=== PATIENT | male | born 1950 | race Caucasian/White ===

== ENCOUNTER 2019-01-27 17:40 | Emergency (ER) | payer MEDICARE ==
[~2019-01-27] VITALS: Ht 188 cm; Wt 148.8 kg
--- NOTE | 2019-01-27 18:03 | EKG ---
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
[2019-01-27] MEDS ORDERED: LIDO:MAALOX 1:1 20 ML SINGLE DOSE. PO ONE (18:15)
[2019-01-27] MEDS ORDERED: ONDANSETRON PF 4 MG/2 ML VIAL. IVP ONE ×2 (18:15→21:15)
[2019-01-27] MEDS ORDERED: MORPHINE SULFATE 4 MG/ML DISP.SYRIN. IV ONE ×2 (18:15→21:15)
[2019-01-27] MEDS ORDERED: FAMOTIDINE 20 MG/2 ML VIAL IVP ONE (18:15)
[2019-01-27 18:36] LABS: BASO # 0.1 x10^3/uL (0.0-0.2); BASO % 0 % (0-3); EOS # 0.1 x10^3/uL (0.0-0.7); EOS % 1 % (0-3); HEMATOCRIT 41.1 % (39.0-53.0); HEMOGLOBIN 13.5 g/dL (13.0-17.5); LYMPH % 7 % (24-48); MEAN CORPUSCULAR HEMOGLOBIN 27 pg (25-35); MEAN CORPUSCULAR HGB CONC 33 g/dL (31-37); MEAN CORPUSCULAR VOLUME 83 fL (79-100); MONO # 0.8 x10^3/uL (0.0-1.1); MONO % 6 % (0-9); NEUT # 12.6 x10^3uL (1.8-7.7); NEUT % 87 % (31-73); PLATELET COUNT 216 x10^3/uL (140-400); RED BLOOD COUNT 4.93 x10^6/uL (4.30-5.70); RED CELL DISTRIBUTION WIDTH 14.7 % (11.5-14.5); WHITE BLOOD COUNT 14.5 x10^3/uL (4.0-11.0)
[2019-01-27 18:58] LABS: ALBUMIN 3.3 g/dL (3.4-5.0); ALBUMIN/GLOBULIN RATIO 0.8 (1.0-1.7); CALCIUM 8.8 mg/dL (8.5-10.1); GFR 74.3; MAGNESIUM 1.8 mg/dL (1.8-2.4); POTASSIUM 3.7 mmol/L (3.5-5.1); TOTAL BILIRUBIN 0.4 mg/dL (0.2-1.0); TOTAL PROTEIN 7.5 g/dL (6.4-8.2)
--- NOTE | 2019-01-27 19:04 | PHYS DOC ---
Past History Past Medical History: Hypertension, Other Additional Past Medical Histor: hernia Past Surgical History: No Surgical History Smoking: Quit Greater Than 1 Year Alcohol Use: None Drug Use: None Adult General Chief Complaint Chief Complaint: CHEST PAIN HPI HPI 68-year-old male presents via EMS with one-day history of epigastric abdominal pain and right flank pain. Patient does report some associated nausea. EMS reports giving 324 mg of aspirin and 100 g of fentanyl in route. Denies hematuria or dysuria. Patient reports he currently is on a diuretic and has increased frequency at baseline. Ice trauma. Denies rash. Denies leg swelling or calf tenderness. Cardiac risk factors of high blood pressure and former smoking. Reports some pleuritic pain. Review of Systems Review of Systems Constitutional: Denies fever or chills; reports malaise Eyes: Denies redness or eye pain HENT: Denies nasal congestion or sore throat Respiratory: Denies cough or shortness of breath Cardiovascular: Denies palpitations GI: Reports epigastric abdominal pain and nausea; denies vomiting : Denies dysuria or hematuria Musculoskeletal: Reports right flank pain; denies joint pain Integument: Denies rash or skin lesions Neurologic: Denies headache, focal weakness or sensory changes Complete systems were reviewed and found to be within normal limits, except as documented in this note. Current Medications Current Medications Current Medications Medications (Trade) Dose Ordered Sig/Alesha Start Time Stop Time Status Last Admin Dose Admin Famotidine (Pepcid Vial) 20 mg 1X ONCE 01/27/19 18:15 01/27/19 18:20 DC 01/27/19 18:25 20 MG Morphine Sulfate (Morphine 4mg Syringe) 4 mg 1X ONCE 01/27/19 18:15 01/27/19 18:20 DC 01/27/19 18:25 4 MG Multi-Ingredient Mouthwash/Gargle (Gi Cocktail) 20 ml 1X ONCE 01/27/19 18:15 01/27/19 18:20 DC 01/27/19 18:24 20 ML Ondansetron HCl (Zofran) 4 mg 1X ONCE 01/27/19 18:15 01/27/19 18:20 DC 01/27/19 18:25 4 MG Allergies Allergies Allergies Coded Allergies Type Severity Reaction Last Updated Verified No Known Drug Allergies 01/27/19 No Physical Exam Physical Exam Constitutional: Well developed, well nourished, uncomfortable, non-toxic appearance HENT: Normocephalic, atraumatic, oropharynx moist Eyes: Conjunctiva normal, no discharge Neck: Normal range of motion, no tenderness, supple Cardiovascular: Heart rate normal, regular rhythm Lungs & Thorax: Bilateral breath sounds clear to auscultation, no wheezing Abdomen: Soft, epigastric and RUQ abdominal pain, large reducible umbilical hernia Skin: Warm, dry, no erythema, no rash Back: No tenderness, right CVA tenderness Extremities: No tenderness, ROM intact, no edema Neurologic: Alert and oriented X 3, no focal deficits noted Psychologic: Affect normal, judgement normal Current Patient Data Vital Signs Vital Signs Date Time Temp Pulse Resp B/P (MAP) Pulse Ox O2 Delivery O2 Flow Rate FiO2 01/27/19 18:25 18 94 Room Air 01/27/19 18:00 98.0 82 Lab Results Laboratory Tests Test 01/27/19 17:57 White Blood Count 14.5 x10^3/uL (4.0-11.0) H Red Blood Count 4.93 x10^6/uL (4.30-5.70) Hemoglobin 13.5 g/dL (13.0-17.5) Hematocrit 41.1 % (39.0-53.0) Mean Corpuscular Volume 83 fL (79-100) Mean Corpuscular Hemoglobin 27 pg (25-35) Mean Corpuscular Hemoglobin Concent 33 g/dL (31-37) Red Cell Distribution Width 14.7 % (11.5-14.5) H Platelet Count 216 x10^3/uL (140-400) Neutrophils (%) (Auto) 87 % (31-73) H Lymphocytes (%) (Auto) 7 % (24-48) L Monocytes (%) (Auto) 6 % (0-9) Eosinophils (%) (Auto) 1 % (0-3) Basophils (%) (Auto) 0 % (0-3) Neutrophils # (Auto) 12.6 x10^3uL (1.8-7.7) H Lymphocytes # (Auto) 1.0 x10^3/uL (1.0-4.8) Monocytes # (Auto) 0.8 x10^3/uL (0.0-1.1) Eosinophils # (Auto) 0.1 x10^3/uL (0.0-0.7) Basophils # (Auto) 0.1 x10^3/uL (0.0-0.2) Sodium Level 135 mmol/L (136-145) L Potassium Level 3.7 mmol/L (3.5-5.1) Chloride Level 99 mmol/L (98-107) Carbon Dioxide Level 28 mmol/L (21-32) Anion Gap 8 (6-14) Blood Urea Nitrogen 16 mg/dL (8-26) Creatinine 1.0 mg/dL (0.7-1.3) Estimated GFR (Cockcroft-Gault) 74.3 BUN/Creatinine Ratio 16 (6-20) Glucose Level 149 mg/dL (70-99) H Calcium Level 8.8 mg/dL (8.5-10.1) Magnesium Level 1.8 mg/dL (1.8-2.4) Total Bilirubin 0.4 mg/dL (0.2-1.0) Aspartate Amino Transferase (AST) 17 U/L (15-37) Alanine Aminotransferase (ALT) 20 U/L (16-63) Alkaline Phosphatase 93 U/L (46-116) Creatine Kinase 64 U/L (39-308) Creatine Kinase MB (Mass) 0.5 ng/mL (0.0-3.6) Creatine Kinase MB Relative Index 0.8 % (0-4) Troponin I Quantitative < 0.017 ng/mL (0-0.055) AJ-Jkb-[id number]-Type Natriuretic Peptide 109 pg/mL (0-124) Total Protein 7.5 g/dL (6.4-8.2) Albumin 3.3 g/dL (3.4-5.0) L Albumin/Globulin Ratio 0.8 (1.0-1.7) L Lipase 75 U/L (73-393) EKG EKG @1747 NSR at 82bpm, NO ST elevation, QRS 94ms, QT/QTc 374/440ms Radiology/Procedures Radiology/Procedures PROCEDURE: CT ANGIOGRAPHY CHEST, CT ABD/PELVIS W/O Exam: CT of chest, with contrast. CT abdomen and pelvis without contrast INDICATION: Chest and epigastric pain TECHNIQUE: Sequential axial images through the chest,obtained following the administration of 70 mL of Isovue-370. IV contrast. Sequential axial images through the abdomen and pelvis were obtained before the administration of IV contrast. Sagittal and coronal reformatted images were reconstructed from the axial data and reviewed. 3-D reformatted images were reconstructed from the axial data and reviewed. Comparisons: None FINDINGS: Visualized portions of the thyroid are unremarkable. No enlarged mediastinal lymph nodes are identified. Heart size is normal. No pericardial effusion. Mild coronary artery calcifications are noted. Thoracic aorta has a normal course and caliber. Pulmonary artery is not enlarged. No pulmonary embolus identified within the main, lobar or segmental pulmonary arteries. Airways are patent. No consolidation or pneumothorax. Strandy opacities within the dependent portion the lung bases likely representing atelectasis. 8 Mm nodule right lower lobe series 4 image 125. No pleural effusion or thickening. Evaluation of the solid organs is limited secondary to noncontrast technique. Liver, spleen, pancreas and adrenals are unremarkable. Gallbladder is distended with adjacent inflammatory changes. No perinephric inflammation or hydronephrosis. No renal or ureteral calculi. Bladder is partially distended and appears thin-walled. Prostate is not enlarged. Extensive diverticulosis is noted probably within the sigmoid and descending colon without evidence of acute diverticulitis. No evidence for obstruction. Large and small bowel are otherwise unremarkable. Appendix is normal. No free intra-abdominal air or fluid. Abdominal aorta has a normal course and caliber. No enlarged intra-abdominal lymph nodes are identified. No suspicious osseous lesions or acute fractures. IMPRESSION: 1. Findings favored represent acute cholecystitis. 2. No pulmonary embolus identified within the main, lobar or segmental pulmonary arteries. 3. 8 mm pulmonary nodule in the right lower lobe. Recommend follow-up chest CT in 3 months to reevaluate. Exposure: One or more of the following in the visualized dose reduction techniques were utilized for this examination: 1. Automated exposure control 2. Adjustment of the MA and/or KV according to patient size 3. Use of iterative of reconstructive technique Electronically signed by: Yo Reyes MD (01/27/2019 8:49 PM) [facility] Course & Med Decision Making Course & Med Decision Making Pertinent Labs and Imaging studies reviewed. (See chart for details) Patient presents with epigastric abdominal pain and right flank pain which started today. Reports some associated nausea. Tenderness noted to epigastric, right upper quadrant, and right flank. Pain addressed. IV fluid hydration given. EKG stable. Labs obtained and posted to chart. Troponin 2 negative. D-dimer elevated. LFT/lipase within normal limits. UA without signs of infection or microscopic hematuria. CTA chest and CT abdomen/pelvis without PE or renal calculi, however, imaging suggestive of acute cholecystitis. Incidental pulmonary nodule noted. A copy of CT imaging given to patient to give to PCP for future re-evaluation. Patient requiring transfer for admission with general surgery consultation. Discussed with Dr. Jackson (General Surgery at [facility]) who is in agreement with consultation, who requests empiric antibiotic. Zosyn initiated. Discussed with Dr. Lucas (hospitalist and [facility]) w ho is in agreement with admission. Discussed findings and plan with patient, who acknowledges understanding and agreement. Dragon Disclaimer Dragon Disclaimer This electronic medical record was generated, in whole or in part, using a voice recognition dictation system. Departure Departure: Impression: Primary Impression: Acute cholecystitis Additional Impression: Incidental pulmonary nodule Disposition: 05 TRANSFER OTHER ([facility]- Dr. Lucas accepting) Condition: STABLE Referrals: SAEED ZHANG MD (PCP) HEART Score for Chest Pain PTs The HEART Score for CP Pts HEART Score for Chest Pain: HEART Score for Chest Pain Response (Comments) Value History Moderately Suspicious 1 ECG Normal 0 Age > 65 2 Risk Factors 1 or 2 Risk Factors 1 Troponin < Normal Limit 0 Total 4 Risk Factors: Risk Factors: DM, Current or recent (<one month) smoker, HTN, HLP, family history of CAD, obesity. Risk Scores: Score 0 - 3: 2.5% MACE over next 6 weeks - Discharge Home Score 4 - 6: 20.3% MACE over next 6 weeks - Admit for Clinical Observation Score 7 - 10: 72.7% MACE over next 6 weeks - Early Invasive Strategies Problem Qualifiers DIRK HURTADO DO Jan 27, 2019 19:04
[2019-01-27 19:43] LABS: BILIRUBIN,URINE NEG (NEG); CLARITY,URINE CLEAR; COLOR,URINE YELLOW; GLUCOSE,URINE NEG (NEG)
[2019-01-27 19:44] LABS: BACTERIA,URINE 0 /HPF (0-FEW); NITRITE,URINE NEG (NEG); RBC,URINE OCC /HPF (0-2); SQUAMOUS EPITHELIAL CELL,UR OCC /LPF; UROBILINOGEN,URINE 0.2 mg/dL (0.2 mg/dL); WBC,URINE OCC /HPF (0-4)
[2019-01-27] MEDS ORDERED: IOHEXOL 350 MG/ML 100 ML VIAL. IV ONE (20:00)
--- NOTE | 2019-01-27 20:51 | RAD ---
Exam: CT of chest, with contrast. CT abdomen and pelvis without contrast INDICATION: Chest and epigastric pain TECHNIQUE: Sequential axial images through the chest,obtained following the administration of 70 mL of Isovue-370. IV contrast. Sequential axial images through the abdomen and pelvis were obtained before the administration of IV contrast. Sagittal and coronal reformatted images were reconstructed from the axial data and reviewed. 3-D reformatted images were reconstructed from the axial data and reviewed. Comparisons: None FINDINGS: Visualized portions of the thyroid are unremarkable. No enlarged mediastinal lymph nodes are identified. Heart size is normal. No pericardial effusion. Mild coronary artery calcifications are noted. Thoracic aorta has a normal course and caliber. Pulmonary artery is not enlarged. No pulmonary embolus identified within the main, lobar or segmental pulmonary arteries. Airways are patent. No consolidation or pneumothorax. Strandy opacities within the dependent portion the lung bases likely representing atelectasis. 8 Mm nodule right lower lobe series 4 image 125. No pleural effusion or thickening. Evaluation of the solid organs is limited secondary to noncontrast technique. Liver, spleen, pancreas and adrenals are unremarkable. Gallbladder is distended with adjacent inflammatory changes. No perinephric inflammation or hydronephrosis. No renal or ureteral calculi. Bladder is partially distended and appears thin-walled. Prostate is not enlarged. Extensive diverticulosis is noted probably within the sigmoid and descending colon without evidence of acute diverticulitis. No evidence for obstruction. Large and small bowel are otherwise unremarkable. Appendix is normal. No free intra-abdominal air or fluid. Abdominal aorta has a normal course and caliber. No enlarged intra-abdominal lymph nodes are identified. No suspicious osseous lesions or acute fractures. IMPRESSION: 1. Findings favored represent acute cholecystitis. 2. No pulmonary embolus identified within the main, lobar or segmental pulmonary arteries. 3. 8 mm pulmonary nodule in the right lower lobe. Recommend follow-up chest CT in 3 months to reevaluate. Exposure: One or more of the following in the visualized dose reduction techniques were utilized for this examination: 1. Automated exposure control 2. Adjustment of the MA and/or KV according to patient size 3. Use of iterative of reconstructive technique Electronically signed by: Yo Reyes MD (01/27/2019 8:49 PM) [facility]
[2019-01-27 21:06] VITALS: BP 155/90
[2019-01-27] MEDS ORDERED: PIPERACILLIN/TAZOBACTAM 3.375 GM in IV NORMAL SALINE 50ML 50 ML IV ONE (21:15)
[2019-01-27] MEDS ORDERED: PIPERACILLIN/TAZOBACTAM 3.375 GM VIAL IV ONE (21:15)
[2019-01-27] MEDS ORDERED: IV NORMAL SALINE 50ML 50 ML ONE (21:15)
== END 2019-01-27 22:34 | disposition short-term general hospital (02) ==
LOC: ER 17:40
DX: K81.0 Acute cholecystitis (principal); R91.1 Solitary pulmonary nodule; I10 Essential (primary) hypertension; Z87.891 Personal history of nicotine dependence
CPT/HCPCS: 36415; 71275; 74176; 80053; 81001; 82553; 83690; 83735; 83880; 84484; 85025; 85379; 85610; 85730; 93005; 96365; 96375; 96376; 99285; J2270; J2405; J2543; J3490; Q9967

== ENCOUNTER → 2019-06-16 | Outpatient (CLI) | payer MEDICARE ==
--- NOTE | 2019-06-16 14:02 | RAD ---
CT CHEST WO CONTRAST Indication: Pulmonary nodule Technique: Noncontrast CT imaging was performed of the chest, multiplanar reconstruction images submitted. One or more of the following individualized dose reduction techniques were utilized for this examination: 1. Automated exposure control 2. Adjustment of the mA and/or kV according to patient size 3. Use of iterative reconstruction technique. Comparison: January 27, 2019 Findings: Previously seen nodule of the right lower lobe near the base is smaller, some residual density about 0.6 cm CC versus previously about 1.2 cm in similar measurement planes. There is also mild fibrotic change and/or atelectasis at the right lung base. No new suspicious pulmonary nodularity is identified. Small dense, about 2 mm nodule posteriorly in the right upper lobe image 31 series 2 is unchanged, likely at least partially calcified. Faint 2 to 3 mm nodule left upper lobe image 61 series 2 is stable. Small 0.4 cm right middle lobe nodule near the minor fissure best seen sagittal image 111 series 4 is stable. There is again ectatic ascending thoracic aorta up to 3.9 cm. There is coronary calcification. There is thoracolumbar degenerative disc disease. Vertebral body stature is unchanged, bony deformity of the anterior superior corner of T12 similar. There is hepatic steatosis. There is again somewhat nodular appearance of the left adrenal gland unchanged, fullness of the right adrenal gland also similar. There has been interval cholecystectomy. IMPRESSION: 1. Previously seen right lower lobe nodule has decreased in size, a couple of other small nodules stable. If considered increased risk factors for neoplasm, optional 12 month is recommended as per revised Fleischner guidelines, otherwise no additional follow-up needed. 2. There is again ectatic ascending thoracic aorta up to 3.9 cm. 3. There is coronary calcification. 4. There is hepatic steatosis. 5. There is again some nodular appearance of the left adrenal gland and unchanged fullness on the right. Electronically signed by: Camacho Esqueda MD (06/16/2019 1:59 PM) [id number]
== END | disposition home or self-care (01) ==
LOC: CT 11:16
PROVIDERS: ATTEND Family Medicine
DX: R91.8 Other nonspecific abnormal finding of lung field (principal); I77.810 Thoracic aortic ectasia; K76.0 Fatty (change of) liver, not elsewhere classified; I25.10 Atherosclerotic heart disease of native coronary artery without angina pectoris; M51.34 Other intervertebral disc degeneration, thoracic region; M95.8 Other specified acquired deformities of musculoskeletal system
CPT/HCPCS: 71250

== ENCOUNTER → 2019-12-15 | Outpatient (CLI) | payer MEDICARE ==
--- NOTE | 2019-12-15 13:19 | RAD ---
INDICATION: Reason: RLE SWELLING X3 YEARS / Spl. Instructions: / History: COMPARISON: None. TECHNIQUE: Grayscale, color and doppler ultrasound images were obtained of the right lower extremity venous vasculature. RIGHT: No thrombus identified in the common femoral vein, femoral vein, popliteal vein or visualized calf veins. IMPRESSION: * No thrombus identified in deep venous system of right lower extremity. Electronically signed by: Santiago Alvarado MD (12/15/2019 1:16 PM) [id number]
== END ==
LOC: US 12:42
PROVIDERS: ATTEND Family Medicine
DX: R60.0 Localized edema (principal)
CPT/HCPCS: 93971

== ENCOUNTER → 2020-08-11 | Outpatient (CLI) | payer MEDICARE ==
--- NOTE | 2020-08-11 15:50 | RAD ---
EXAM: Carotid Doppler sonogram. HISTORY: Right carotid endarterectomy. Cigarette smoking. Atherosclerosis. TECHNIQUE: Vaughn scale and color Doppler sonographic evaluation of the neck with spectral waveform lupe lysis was performed and static images are submitted for review. FINDINGS: The peak systolic velocity within the right common carotid artery is 98 cm/sec. The peak sy stolic velocity within the right internal carotid artery is 71 cm/sec and the end diastolic velocity within the right internal carotid artery is 25 cm/sec. The right ICA/CCA ratio is less than 1.0. There is occlusion of the left internal carotid artery. There is mild atherosclerotic plaque involvin g the left carotid bifurcation. The peak systolic velocity within the left common carotid artery is 1 66 cm/sec. There is normal antegrade flow within both vertebral arteries. IMPRESSION: 1. Left ICA occlusion. This is further characterized on the CT angiogram dated 07/05/2020. 2. Mild atherosclerotic plaque involving the left carotid bifurcation. 3. Right carotid endarterectomy changes. There is no Doppler evidence of greater than 50 percent sten osis involving the right internal carotid artery. PQRS Compliance Statement - Stenosis calculations for CT, MR and conventional angiography are based u kimber measurement of the distal ICA diameter in accordance with the NASCET methodology. Stenosis calcu lations for carotid ultrasound studies are derived from validated velocity criteria which are known t o correlate with the NASCET methodology. Electronically signed by: Abbey Pnieda MD (08/11/2020 3:48 PM) [id number]
== END ==
LOC: US 14:35
PROVIDERS: ATTEND Registered Nurse Medical-Surgical
DX: I65.21 Occlusion and stenosis of right carotid artery (principal); I10 Essential (primary) hypertension; Z87.891 Personal history of nicotine dependence
CPT/HCPCS: 93880

== ENCOUNTER → 2021-06-22 | Outpatient (CLI) | payer MEDICARE ==
--- NOTE | 2021-06-22 11:52 | RAD ---
CT THORAX WO History: Follow-up pulmonary nodule Comparison: 06/16/2019, 01/27/2019 Technique: Noncontrast CT of the chest. Findings: Assessment is limited by lack of IV contrast. Cardiovascular: Ascending aorta measures 3.9 cm at the level of the right pulmonary artery. Normal he art size. No pericardial effusion. Moderate atherosclerotic calcification of the coronary arteries. Mediastinum and bell: Normal thyroid and esophagus. No adenopathy. Airways, lungs and pleura: Airways are patent. Mild bronchial wall thickening. There is similar appea kaylie of previously described right lower lobe 8 mm density which is favored to represent part of rig ht lower lobe atelectatic scarring rather than discrete pulmonary nodule. No significant new or enlar ging pulmonary nodules. No effusion or pneumothorax. Upper abdomen: Cholecystectomy clips. Mild colonic diverticulosis. Osseous structures and soft tissues: A lateral gynecomastia. Decreased osseous mineralization with mu ltilevel thoracic spine endplate degenerative changes. Impression: 1. Stable appearance of density in the right lower lobe which is favored to represent part of atelec tasis/scarring rather than discrete pulmonary nodule. No significant new or enlarging pulmonary nodul e. No follow-up is recommended. 2. Moderate coronary artery calcification. ------ Exposure: One or more of the following individualized dose reduction techniques were utilized for thi s examination: 1. Automated exposure control 2. Adjustment of the mA and/or kV according to patient size 3. Use of iterative reconstruction technique. Electronically signed by: Alejandro Villegas MD (06/22/2021 11:50 AM) [id number]
== END ==
LOC: CT 08:37
PROVIDERS: ATTEND Family Medicine
DX: R91.1 Solitary pulmonary nodule (principal); I25.10 Atherosclerotic heart disease of native coronary artery without angina pectoris; K57.30 Diverticulosis of large intestine without perforation or abscess without bleeding; N62 Hypertrophy of breast; M47.814 Spondylosis without myelopathy or radiculopathy, thoracic region
CPT/HCPCS: 71250